=== PATIENT | male | born 1995 | race Caucasian/White ===

== ENCOUNTER 2019-08-06 20:00 | Emergency (ER) | payer SELFPAY ==
[~2019-08-06] VITALS: Ht 172.7 cm; Wt 120.2 kg
[2019-08-06 20:04] VITALS: Ht 172.7 cm; Wt 120.2 kg
[2019-08-06 22:17] VITALS: BP 133/88
== END 2019-08-06 22:17 | disposition home or self-care (01) ==
LOC: ED 20:00
DX: R06.02 Shortness of breath (principal); R05 Cough; E66.01 Morbid (severe) obesity due to excess calories; Z20.828 Contact with and (suspected) exposure to other viral communicable diseases; Z68.41 Body mass index [BMI] 40.0-44.9, adult
CPT/HCPCS: 87804; Q0092; U0003-CS

== ENCOUNTER 2019-10-21 06:45 | Emergency (ER) | payer OTHER ==
[~2019-10-21] VITALS: Ht 175.3 cm; Wt 114.8 kg
[2019-10-21 06:46] VITALS: Ht 175.3 cm; Wt 114.8 kg
[2019-10-21 08:34] VITALS: BP 126/92
== END 2019-10-21 08:39 | disposition home or self-care (01) ==
LOC: ED 06:45
DX: R05 Cough (principal); G89.29 Other chronic pain; J02.9 Acute pharyngitis, unspecified; R09.81 Nasal congestion
CPT/HCPCS: Q0092

== ENCOUNTER 2020-01-07 19:28 | Emergency (ER) | payer OTHER ==
[~2020-01-07] VITALS: Ht 170.2 cm; Wt 117.0 kg
[2020-01-07 19:49] VITALS: Ht 170.2 cm; Wt 117.0 kg
[2020-01-07 21:38] VITALS: BP 143/83
== END 2020-01-07 21:38 | disposition home or self-care (01) ==
LOC: ED 19:28
DX: M62.838 Other muscle spasm (principal); R51.9 Headache, unspecified